=== PATIENT | female | born 1975 | race Caucasian/White ===

== ENCOUNTER 2022-03-01 03:37 | Inpatient (IN) ==
[2022-03-01] MEDS ORDERED: MORPHINE 2 MG/1 ML SYRINGE IV STA (04:03)
[2022-03-01] MEDS ORDERED: ONDANSETRON 4 MG/2 ML VIAL IV STA (04:03)
[2022-03-01] MEDS ORDERED: SODIUM CHLORIDE 0.9% 1,000 ML IV STA (04:03)
[2022-03-01 04:35] LABS: Basophils % 0.2 % (0.0-0.8); Hematocrit 42.3 VOL% (35.7-47.0); Hemoglobin 14.2 GM/DL (12.0-16.0); Immature Granulocytes % 0.2 %; Immature Granulocytes Absolute 0.02 #; Lymphocytes # 0.5 10*3/uL (1.4-4.0); Lymphocytes % 4.5 % (21.3-54.2); Mean Corpuscular HGB Conc 33.6 GM/DL (32-36); Mean Corpuscular Volume 100.5 FL (87-102); Mean Platelet Volume 9.6 FL (9.6-12.0); Monocytes # 0.8 10*3/uL (0.11-0.8); Monocytes % 7.7 % (1.7-12.7); Neutrophils % 87.4 % (38.7-73.9); Platelet Count 220 T/CUMM (130-400); Red Blood Count 4.21 MC/CUMM (3.8-5.5); Red Cell Distribution Width 11.9 % (9.3-17.3); White Blood Count 10.7 T/CUMM (4-12)
[2022-03-01 04:56] LABS: Albumin 3.9 G/DL (3.4-5.0); Bilirubin,Total 0.6 MG/DL (0.20-1.00); Calcium 8.7 MG/DL (8.5-10.1); Osmolality,Calculated 283.5 MOS/KG (273-304); Potassium 4.1 MMOL/L (3.5-5.1); Total Protein 6.9 G/DL (6.4-8.2)
[2022-03-01 04:58] LABS: Band Neutrophils 8 % (0-10); Eosinophils 1 % (0-10); Lymphocytes 6 % (20-55); Total Cells Counted 100
[2022-03-01] MEDS ORDERED: HYDROmorphone 1 MG/1 ML SYRINGE IV STA (06:14)
[2022-03-01 06:17] LABS: Bacteria,Urine Occasional /HPF (Few); Mucus,Urine Occasional /LPF (Occasional); RBC,Urine 1 /HPF (0-4); Squamous Epithelial Cell,Urine Occasional /HPF (0-10)
[2022-03-01 06:18] LABS: Bilirubin,Urine Small mg/dL (Negative); Blood, Urine Negative (Negative); Glucose,Urine (UA) Negative (Negative); Ketones,Urine 15 mg/dL (Negative); Nitrite,Urine Negative (Negative); Protein,Urine 30 mg/dL (Negative); Urine Appearance Clear (Clear); Urine Color Yellow (Yellow); Urine Urobilinogen 0.2 eU/dL (<2.0)
[2022-03-01] MEDS ORDERED: KETOROLAC 30 MG/1 ML VIAL IV SCH ×2 (07:53→14:30)
[2022-03-01] MEDS ORDERED: KETOROLAC 30 MG/1 ML VIAL IV PRN (07:56)
[2022-03-01] MEDS ORDERED: PROMETHAZINE 25 MG/1 ML VIAL IM PRN (08:28)
[2022-03-01] MEDS ORDERED: MAGNESIUM SULF RIDER 4 GM/100 ML PREMIX IV PRN (08:28)
[2022-03-01] MEDS ORDERED: MORPHINE 2 MG/1 ML SYRINGE IV PRN (08:28)
[2022-03-01] MEDS ORDERED: MAGNESIUM SULF RIDER 2 GM/50 ML PREMIX IV PRN (08:28)
[2022-03-01] MEDS ORDERED: CIPROFLOXACIN INJ 400 MG/200 ML PREMIX IV SCH (09:00)
[2022-03-01] MEDS ORDERED: metroNIDAZOLE INJ 500 MG/100 ML PREMIX IV SCH (09:00)
[2022-03-01] MEDS: PANTOPRAZOLE 40 MG VIAL IV SCH (09:22)
[2022-03-01] MEDS: DEXTROSE 5% NACL 0.45% 1,000 ML IV SCH ×5 (09:25→22:21)
[2022-03-01] MEDS ORDERED: KETOROLAC 30 MG/1 ML VIAL IM ONE (11:03)
[2022-03-01] MEDS ORDERED: ONDANSETRON 4 MG/2 ML VIAL IV ONE (11:04)
[2022-03-01] MEDS ORDERED: HYDROmorphone 1 MG/1 ML SYRINGE IV ONE (11:04)
[2022-03-01] MEDS ORDERED: propofoL 200 MG/20 ML VIAL IV ONE (12:32)
[2022-03-01] MEDS ORDERED: ONDANSETRON 4 MG/2 ML VIAL ONE (12:32)
[2022-03-01] MEDS ORDERED: LIDOCAINE 2% 5 ML VIAL ONE (12:32)
[2022-03-01] MEDS ORDERED: SUCCINYLCHOLINE 200 MG/10 ML VIAL ONE (12:32)
[2022-03-01] MEDS ORDERED: ROCURONIUM 50 MG/5 ML VIAL IV ONE (12:32)
[2022-03-01] MEDS ORDERED: fentaNYL 100 MCG/2 ML VIAL ONE (12:35)
[2022-03-01] MEDS ORDERED: MIDAZOLAM 2 MG/2 ML VIAL ONE (12:53)
[2022-03-01] MEDS ORDERED: PHENYLEPHRINE 1 MG/10 ML SYRINGE IV ONE ×2 (13:03→13:20)
[2022-03-01] MEDS ORDERED: LACTATED RINGERS 1,000 ML IV ONE (13:37)
[2022-03-01] MEDS ORDERED: DEXAMETHASONE 4 MG/1 ML VIAL ONE (13:50)
[2022-03-01] MEDS ORDERED: ROPIVACAINE 0.5% 30 ML VIAL ONE ×2 (13:51)
[2022-03-01] MEDS ORDERED: NEOSTIGMINE 10 MG/10 ML VIAL ONE (14:10)
[2022-03-01] MEDS: KETOROLAC 15 MG/1 ML VIAL IV SCH ×2 (17:41→20:15)
[2022-03-02] MEDS: HYDROmorphone 1 MG/1 ML SYRINGE IV PRN ×3 (00:25→17:53)
[2022-03-02] MEDS ORDERED: ONDANSETRON 4 MG/2 ML VIAL ONE (00:26)
[2022-03-02] MEDS: DEXTROSE 5% NACL 0.45% 1,000 ML IV SCH ×3 (00:37→09:59)
[2022-03-02] MEDS ORDERED: ONDANSETRON 4 MG/2 ML VIAL IV PRN (00:38)
[2022-03-02] MEDS: KETOROLAC 15 MG/1 ML VIAL IV SCH ×4 (03:20→20:29)
[2022-03-02 06:38] LABS: Basophils % 0.3 % (0.0-0.8); Hematocrit 30.5 VOL% (35.7-47.0); Hemoglobin 10.2 GM/DL (12.0-16.0); Immature Granulocytes Absolute 0.11 #; Lymphocytes # 0.6 10*3/uL (1.4-4.0); Lymphocytes % 5.8 % (21.3-54.2); Mean Corpuscular HGB Conc 33.4 GM/DL (32-36); Mean Corpuscular Volume 100.3 FL (87-102); Monocytes % 8.8 % (1.7-12.7); Neutrophils % 84.1 % (38.7-73.9); Platelet Count 169 T/CUMM (130-400); Red Blood Count 3.04 MC/CUMM (3.8-5.5); Red Cell Distribution Width 12.1 % (9.3-17.3)
[2022-03-02 06:59] LABS: Band Neutrophils 4 % (0-10); Lymphocytes 8 % (20-55); Platelet Estimate Adequate; Total Cells Counted 100
[2022-03-02 07:09] LABS: Calcium 7.4 MG/DL (8.5-10.1); Potassium 4.2 MMOL/L (3.5-5.1)
[2022-03-02] MEDS: PANTOPRAZOLE 40 MG VIAL IV SCH (08:16)
[2022-03-02 08:28] LABS: Albumin 2.4 G/DL (3.4-5.0); Bilirubin,Direct 0.1 MG/DL (0.0-0.20); Bilirubin,Indirect 0.3 MG/DL (0.0-1.0); Bilirubin,Total 0.4 MG/DL (0.20-1.00); Total Protein 5.2 G/DL (6.4-8.2)
[2022-03-02] MEDS: ENOXAPARIN 40 MG/0.4 ML SYRINGE SUBCUT SCH (11:40)
[2022-03-02] MEDS: DEXT 5% NACL 0.45% KCL 20 MEQ 20 MEQ/1,000 ML BAG IV SCH (14:06)
[2022-03-03] MEDS: HYDROmorphone 1 MG/1 ML SYRINGE IV PRN ×4 (00:54→20:37)
[2022-03-03] MEDS: DEXT 5% NACL 0.45% KCL 20 MEQ 20 MEQ/1,000 ML BAG IV SCH (03:34)
[2022-03-03] MEDS: KETOROLAC 15 MG/1 ML VIAL IV SCH ×4 (03:35→20:38)
[2022-03-03 06:14] LABS: Basophils % 0.4 % (0.0-0.8); Eosinophils % 0.6 % (0.00-10.9); Hematocrit 25.6 VOL% (35.7-47.0); Hemoglobin 8.6 GM/DL (12.0-16.0); Immature Granulocytes % 1.2 %; Immature Granulocytes Absolute 0.09 #; Lymphocytes # 1.1 10*3/uL (1.4-4.0); Lymphocytes % 14.6 % (21.3-54.2); Mean Corpuscular HGB Conc 33.6 GM/DL (32-36); Mean Corpuscular Volume 100.8 FL (87-102); Mean Platelet Volume 9.9 FL (9.6-12.0); Monocytes # 0.6 10*3/uL (0.11-0.8); Monocytes % 7.7 % (1.7-12.7); Neutrophils % 75.5 % (38.7-73.9); Platelet Count 142 T/CUMM (130-400); Red Blood Count 2.54 MC/CUMM (3.8-5.5); Red Cell Distribution Width 12.2 % (9.3-17.3); White Blood Count 7.3 T/CUMM (4-12)
[2022-03-03 06:36] LABS: Calcium 7.9 MG/DL (8.5-10.1); Osmolality,Calculated 282.3 MOS/KG (273-304); Potassium 3.9 MMOL/L (3.5-5.1)
[2022-03-03 06:40] LABS: Band Neutrophils 3 % (0-10); Lymphocytes 11 % (20-55); Total Cells Counted 100
[2022-03-03 06:41] LABS: Macrocytosis Slight; Platelet Estimate Adequate
[2022-03-03] MEDS: PANTOPRAZOLE 40 MG VIAL IV SCH (08:38)
[2022-03-03 11:49] LABS: Hematocrit 24.8 VOL% (35.7-47.0); Hemoglobin 8.2 GM/DL (12.0-16.0)
[2022-03-03] MEDS: ENOXAPARIN 40 MG/0.4 ML SYRINGE SUBCUT SCH (12:02)
[2022-03-04] MEDS: KETOROLAC 15 MG/1 ML VIAL IV SCH ×5 (01:00→20:47)
[2022-03-04] MEDS: PANTOPRAZOLE 40 MG VIAL IV SCH (09:46)
[2022-03-04] MEDS: ENOXAPARIN 40 MG/0.4 ML SYRINGE SUBCUT SCH (12:30)
[2022-03-05] MEDS: KETOROLAC 15 MG/1 ML VIAL IV SCH ×2 (02:54→08:44)
[2022-03-05 07:45] VITALS: BP 100/56
[2022-03-05] MEDS ORDERED: diphenhydrAMINE 50 MG/1 ML VIAL IV ONE (07:55)
[2022-03-05] MEDS: PANTOPRAZOLE 40 MG VIAL IV SCH (08:44)
== END 2022-03-05 10:36 | disposition home health service (06) | DRG 329 ==
LOC: N.ED 03:37 → N.EDINP 03:37 → SUATTDRO 08:28 → N.2W 09:52 → N.CC 14:23 → SUATTDRO 17:17 → N.3E 03-02 16:38
PROVIDERS: ADMIT Phlebology; ATTEND Emergency Medicine